=== PATIENT | female | born 1935 | race Hispanic/Latino ===

== ENCOUNTER 2018-02-18 03:40 | Inpatient (IN) | payer MEDICARE ==
[2018-02-18 04:48] LABS: Thyroid Stimulating Hormone 3.332 uIU/mL (0.35-4.94)
[2018-02-18 05:11] LABS: Bilirubin Negative (Negative); Blood, Urine Trace (Negative); Clarity CLEAR (Clear); Glucose, Urine (Dipstick) Negative (Negative); Leukocyte Negative (Negative); Nitrite Negative (Negative); Protein, Urine (Dipstick) Negative (Neg-Trace); Specific Gravity, Urine 1.004 (1.002-1.036); Urobilinogen 0.2 mg/dL (0.2-1.0)
[2018-02-18 05:14] LABS: Bacteria/HPF None Seen HPF (None Seen); Hyaline Casts/LPF 0-3 HYALINE CAST LPF (0-3 Hyaline); Pathc Cast-AUWi Flag 0.14 (0-2.49); RBC/HPF 0-3 HPF (0-3); Squamous Epithelial None Seen HPF (0-3); WBC/HPF None Seen HPF (0-3)
[2018-02-18] MEDS ORDERED: Ondansetron PF 4 MG/2 ML Vial IVP PRN ×2 (05:18)
[2018-02-18] MEDS ORDERED: Nitroglycerin 0.4 MG TAB (25 Tab Bottle) SL PRN (05:18)
[2018-02-18] MEDS ORDERED: Calcium Carbonate 500 MG ChewTAB PO PRN (05:18)
[2018-02-18] MEDS ORDERED: cloNIDine 0.1 MG TAB PO PRN (05:18)
[2018-02-18] MEDS ORDERED: hydrALAZINE 20 MG/ML VIAL SLOW IVP PRN (05:18)
[2018-02-18] MEDS ORDERED: Senokot S 8.6-50 MG TAB PO PRN (05:18)
[2018-02-18] MEDS ORDERED: Bisacodyl 5 MG TAB PO PRN (05:18)
[2018-02-18] MEDS ORDERED: Acetaminophen 325 MG TAB PO PRN (05:18)
[2018-02-18] MEDS ORDERED: Sodium Chloride 0.9% 1,000 ML IV SCH (05:30)
--- NOTE | 2018-02-18 05:43 | PDOC.EVN ---
Event Note - Event Note Event Note: H&P dictated #[id number].
--- NOTE | 2018-02-18 06:07 | HP ---
DATE OF ADMISSION: 02/18/2018 CHIEF COMPLAINT: Generalized weakness, nausea, and vomiting. PRIMARY CARE PHYSICIAN: Dr. Prado. HISTORY OF PRESENT ILLNESS: Ms. Cordova is a pleasant 82-year-old very active otherwise healthy fem aleks with past medical history of hypertension who presented to the ER with the above-mentioned compla int. The patient initially has presented to outside ER for generalized weakness. History is mainly obtained by the patient and her daughter present at the bedside. Electronical medical records have b een reviewed. According to Ms. Cordova's daughter, the patient has been having lots of depression recently. She r eports that one year ago, her father and then patient's brother in 2 weeks ago. Patient do g was ran over. The patient has been having trouble sleeping and was prescribed Xanax by the patient 's daughter's primary care physician, which she has been taking. She apparently ran out of the Xanax and since then has been having a hard time falling asleep. She has been eating poorly as well. Als o, because she was told that she has high blood pressure needs to watch her diet: She has lowered he r oral intake. On top of that, she ate some outside Italian food and started to throw up. She has h ad 1 or 2 episodes of vomiting in the last 1 or 2 days. Denies any abdominal pain or diarrhea. Scar es any sick contacts. No fever, chills, runny nose, sore throat, chest pain, shortness of breath, dy suria, frequency, urgency. No blood in the stools or black tarry looking stools. In the emergency room, the most shocking finding was hyponatremia with serum sodium of 116 without an y other abnormality. She was transferred over to our facility. In the emergency room, a chest x-ray was done which was unremarkable. The patient was otherwise hemodynamically stable and is now being admitted for severe hyponatremia. She has been given some IV fluids in the outside emergency room. Patient notably has normal renal function. She has also received 325 mg of aspirin and 0.5 mg of grant azepam, 4 mg of Zofran, 1000 mL of normal saline, and 20 mEq of K-Dur in the outside emergency room. PAST MEDICAL HISTORY: 1. Hypertension. 2. Anxiety and depression. 3. Dyslipidemia. 4. Hypothyroidism. PAST SURGICAL HISTORY: None reviewed with the patient and her daughter. PSYCHIATRIC HISTORY: Anxiety and depression. ALLERGIES: No known medication allergies. HOME MEDICATIONS: 1. Lisinopril. 2. Atorvastatin. 3. Levothyroxine. Medication dosages need to be further confirmed. CODE STATUS: DO NOT RESUSCITATE OR INTUBATE. Discussed with the patient in detail. 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 She is very independent. Her dog 2 weeks ago and her 's anniversary approaching in few days. ALLERGIES: No known medication allergies. CURRENT MEDICATIONS: Atorvastatin 40 mg daily, levothyroxine 75 mcg daily, lisinopril 20 mg daily. FAMILY HISTORY: Significant for stroke in patient's father, otherwise one of her sisters has diabete s. No history of premature coronary artery disease or cancer. REVIEW OF SYSTEMS: A 12-point review of systems was done and is negative except for those mentioned in the history and physical. The daughter does report some confusion earlier today. PHYSICAL EXAMINATION: VITAL SIGNS: Upon presentation to the emergency room, blood pressure 178/87, pulse of 88, respiratio ns 16, temperature 98.1, saturating 97% on room air. GENERAL: No acute distress, awake, alert, oriented x3, appears younger than her stated age. HEENT: Mucous membranes are slightly dry. No oropharyngeal exudate or erythema. Head is normocepha lic, atraumatic. Pupils equal, reactive to light and accommodation. Extraocular movement intact. NECK: Supple without any lymphadenopathy, JVD, or bruit. CHEST: Clear to auscultation without any wheezing, rales, or rhonchi. HEART: Rate and rhythm is regular without any murmur, rubs, or gallops. ABDOMEN: Soft, nontender, nondistended with positive bowel sounds. EXTREMITIES: Free of any cyanosis, clubbing, or edema. NEUROLOGIC: Nonfocal. SKIN: Free of any rashes or bruises, feel warm and dry to touch. PSYCHIATRIC: Normal affect. LABORATORY DATA: Serum sodium is 116, BUN and creatinine 27 and 0.82, blood sugar 138, potassium 3.6 , chloride 77. Liver enzymes unremarkable. BNP normal at 35. Cardiac enzymes normal. Urinalysis s hows specific gravity 1.004, trace blood. CBC unremarkable. Chest x-ray by my review has no evidenc e to suggest any pulmonary edema or infiltrate. Twelve-lead EKG by my review shows normal sinus rhyt hm at 84 beats per minute without any ectopy. Nonspecific ST and T-wave changes are seen. IMPRESSION AND PLAN: 1. Hyponatremia. We will recheck the sodium again. It appears to hypotonic at this time with likel y due to poor oral intake as well as vomiting. The patient has received 1 liter of normal saline. W e will put her on free water restriction and started on gentle IV fluid hydration and monitor sodium levels every few hours. Urine osmolality and urine sodium as well as serum osmolality will be checke d. We will consult Nephrology for falling the patient as well. We will monitor the rise of se rum sodium of not more than 10 mEq in 24 hours. She will be monitored on the telemetry unit. I doub t that this is SIADH in the absence of any specific cause or any other illnesses at this time. Sligh tly elevated BUN and also low chloride level suggest hypovolemia and hypotonic state. The patient is not on any thiazide diuretics. 2. Hypertension. We will restart her lisinopril once the dose is confirmed. We will also put her o n p.r.n. antihypertensives. 3. Dyslipidemia. Restart atorvastatin. 4. Hypothyroidism. TSH has been checked and is within normal limit. We will resume her levothyroxi ne at 175 mcg daily. 5. Add deep venous thrombosis and gastrointestinal prophylaxis. 6. Add p.r.n. medication orders. DISPOSITION: Ms. Cordova is currently being admitted to the hospital for severe hyponatremia. Fanny mated length of stay is at least 2-3 midnight. Further management will depend upon her clinical cour se.
[2018-02-18 06:42] LABS: Anion Gap 12 mmol/L (10-20); BUN (Urea Nitrogen) 22 mg/dL (9.8-20.1); Calc. Creatinine Clearance 0 mL/min (70-130); Calcium 8.5 mg/dL (7.8-10.44); Carbon Dioxide 25 mmol/L (23-31); Chloride 85 mmol/L (98-107); Estimated GFR-MDRD 76; Glucose 120 mg/dL (83-110); Potassium 3.7 mmol/L (3.5-5.1)
[2018-02-18 06:51] LABS: Sodium 118 mmol/L (136-145)
[2018-02-18 06:58] VITALS: BMI 21.2
[2018-02-18] MEDS: Sodium Chloride 0.9% 1,000 ML IV SCH (08:35)
[2018-02-18] MEDS: Enoxaparin Sodium 40 MG/0.4 ML SYRINGE SC SCH (08:39)
[2018-02-18] MEDS: Lisinopril 10 MG TAB PO SCH (08:40)
--- NOTE | 2018-02-18 09:05 | RAD ---
PORTABLE CHEST: History: Shortness of breath. FINDINGS: Heart size is within normal limits. There are arthrosclerotic changes of the aorta. The lungs are lisa ar of infiltrates. The bones appear demineralized. IMPRESSION: No active intrathoracic disease. POS: [facility]
[2018-02-18 10:09] LABS: Anion Gap 12 mmol/L (10-20); BUN (Urea Nitrogen) 21 mg/dL (9.8-20.1); Calc. Creatinine Clearance 43 mL/min (70-130); Calcium 8.8 mg/dL (7.8-10.44); Carbon Dioxide 25 mmol/L (23-31); Chloride 87 mmol/L (98-107); Estimated GFR-MDRD 73; Glucose 149 mg/dL (83-110); Potassium 3.6 mmol/L (3.5-5.1); Sodium 120 mmol/L (136-145)
[2018-02-18] MEDS: Famotidine 20 MG TAB PO SCH (10:17)
[2018-02-18 14:30] LABS: Anion Gap 11 mmol/L (10-20); BUN (Urea Nitrogen) 22 mg/dL (9.8-20.1); Calc. Creatinine Clearance 40 mL/min (70-130); Calcium 8.6 mg/dL (7.8-10.44); Carbon Dioxide 24 mmol/L (23-31); Chloride 88 mmol/L (98-107); Estimated GFR-MDRD 68; Glucose 158 mg/dL (83-110); Potassium 3.9 mmol/L (3.5-5.1)
[2018-02-18 14:33] LABS: Sodium 119 mmol/L (136-145)
--- NOTE | 2018-02-18 16:17 | PDOC.PN ---
- Subjective Encounter Start Date: 02/18/18 Encounter Start Time: 15:45 Subjective: f/u for hyponatremia, N/V and insomnia. Overall feeling better today -: and appetite improved. N/V resolved. - Objective Resuscitation Status: Resuscitation Status DNR:Do Not Resuscitate MAR Reviewed: Yes Vital Signs & Weight: Vital Signs (12 hours) Temp Pulse Resp BP BP Pulse Ox 02/18/18 15:49 98.2 F 68 16 107/55 L 97 02/18/18 12:18 97.6 F 70 16 111/55 L 96 02/18/18 08:40 130/62 02/18/18 08:25 97.9 F 70 16 130/62 95 02/18/18 06:40 97.8 F 69 16 135/60 95 Weight Weight 105 lb 4.8 oz Result Diagrams: 02/18/18 13:30 Additional Labs: Laboratory Tests 02/18/18 02/18/18 02/18/18 04:00 04:00 04:00 Sodium 118 L* Serum Osmolality 253 L B-Natriuretic Peptide 35.2 TSH 3rd Generation 3.3320 Urine Osmolality Urine Sodium 02/18/18 02/18/18 02/18/18 04:50 04:50 09:40 Sodium 120 L Serum Osmolality B-Natriuretic Peptide TSH 3rd Generation Urine Osmolality 210 L Urine Sodium 45 Radiology Reviewed by me: Yes (PCXR - negative) EKG Reviewed by me: Yes (Tele - SR) Phys Exam - Physical Examination Constitutional: NAD HEENT: PERRLA, sclera anicteric, oral pharynx no lesions Neck: no nodes, no JVD, supple, full ROM Respiratory: no wheezing, no rales, no rhonchi, clear to auscultation bilateral Cardiovascular: RRR, no significant murmur, no rub, gallop Gastrointestinal: soft, non-tender, no distention, positive bowel sounds Musculoskeletal: no edema, pulses present Neurological: normal sensation, moves all 4 limbs Psychiatric: normal affect, A&O x 3 Skin: no rash, normal turgor, cap refill <2 seconds Dx/Plan (1) Hyponatremia Code(s): E87.1 - HYPO-OSMOLALITY AND HYPONATREMIA Status: Acute Comment: Multifactorial given dehydration, N/V and poor oral intake and HCTZ use, avoid HCTZ, continue low-volume NS, serial Na+ (2) Nausea & vomiting Code(s): R11.2 - NAUSEA WITH VOMITING, UNSPECIFIED Status: Acute Comment: Improved, continue Zofran prn, advance diet as tolerated (3) HTN (hypertension) Code(s): I10 - ESSENTIAL (PRIMARY) HYPERTENSION Status: Chronic Qualifiers: Hypertension type: essential hypertension Qualified Code(s): I10 - Essential (primary) hypertension Comment: Resume home BP regimen but d/c HCTZ, serial monitoring (4) Hypothyroid Code(s): E03.9 - HYPOTHYROIDISM, UNSPECIFIED Status: Chronic Comment: Resume home regimen of Levothyroxine (5) Depression Code(s): F32.9 - MAJOR DEPRESSIVE DISORDER, SINGLE EPISODE, UNSPECIFIED Status : Chronic Comment: Multifactorial given loss of multiple family members recently, will need [facility] follow up but not a good candidate for SSRI currently given hyponatremia - Plan plan discussed w/ family, PT/OT, out of bed/ambulate, DVT proph w/SCDs Stable currently -: Continue low-volume IV NS -: Avoid HCTZ -: Trial Restoril 15mg HS for insomnia -: Regular diet * AM lab: BMP
[2018-02-18 20:33] LABS: Potassium 3.8 mmol/L (3.5-5.1)
--- NOTE | 2018-02-18 22:27 | CON ---
DATE OF CONSULTATION: 02/18/2018 CONSULTING PHYSICIAN: Dr. Plascencia. REASON FOR CONSULTATION: Hyponatremia. REASON FOR ADMISSION: Nausea, vomiting, weakness. HISTORY OF PRESENT ILLNESS: This 82-year-old female with history of hypertension, anxiety, depression, hypothyroidism, came to the hospital with the above complaints and was found to have sodi um of 116, which got corrected to 118-120 with IV fluids and Nephrology is consulted. The patient abdul s been having nausea, vomiting, and weakness as per the daughter, and she has been hydrating herself. No chest pain or palpitation reported. No fever, chills. PAST MEDICAL HISTORY: Positive for hypertension, anxiety, depression, hyperlipidemia, hypothyroidism . PAST SURGICAL HISTORY: None. HOME MEDICATIONS: Lisinopril, , levothyroxine. ALLERGIES: No known drug allergies. SOCIAL HISTORY: No smoking, alcohol, drugs. FAMILY HISTORY: No history of kidney disease. REVIEW OF SYSTEMS: The following complete review of systems was negative, unless otherwise mentioned in the HPI or below: Constitutional: Weight loss or gain, ability to conduct usual activities. Sk in: Rash, itching. Eyes: Double vision, pain. ENT/Mouth: Nose bleeding, neck stiffness, pain, te nderness. Cardiovascular: Palpitations, dyspnea on exertion, orthopnea. Respiratory: Shortness of breath, wheezing, cough, hemoptysis, fever or night sweats. Gastrointestinal: Poor appetite, abdom inal pain, heartburn, nausea, vomiting, constipation, or diarrhea. Genitourinary: Urgency, frequenc y, dysuria, nocturia. Musculoskeletal: Pain, swelling. Neurologic/Psychiatric: Anxiety, depressio n. Allergy/Immunologic: Skin rash, bleeding tendency. PHYSICAL EXAMINATION: GENERAL: This is a thin-built female, in no apparent distress. VITAL SIGNS: Temperature 97.6, pulse 70, respiratory rate 16, blood pressure 111/55. HEENT: Atraumatic, normocephalic. Oral mucosa is dry. NECK: Supple. CARDIOVASCULAR: S1, S2 heard. Rate and rhythm regular. RESPIRATORY: Clear. GASTROINTESTINAL: Abdomen is soft. MUSCULOSKELETAL: 1+ edema. DERMATOLOGIC: No rash. NEUROLOGIC: Alert and awake normal. PSYCHIATRIC: Mood and affect normal. LABORATORY DATA: Sodium is 118, potassium 3.7, BUN 22, creatinine 0.7. . Urine osmolality is 210. ASSESSMENT AND PLAN: 1. Hyponatremia, most likely from reduced solute intake or hypovolemia. Agree with intravenous flui ds for now with cautious administration and cautious monitoring. 2. Avoid correction more than 8-10 mEq in 24 hours. 3. Hypochloremia. 4. Edema, controlled. 5. Hypertension, stable. 6. Hypo-osmolality. 7. We will monitor sodium closely and continue IV fluids as tolerated. We will reduce IV fluids to 50 mL per hour. Thank you for the consult.
[2018-02-18] MEDS: Temazepam 15 MG CAP PO PRN (22:28)
[2018-02-19] MEDS: Sodium Chloride 0.9% 1,000 ML IV SCH (04:32)
[2018-02-19 05:29] LABS: #Basophils 0.1 thou/uL (0.0-0.2); #Eosinphils 0.3 thou/uL (0.0-0.7); #Monocytes 0.6 thou/uL (0.11-0.59); #Neutrophils 3.3 thou/uL (1.40-6.50); %Basophils 1.7 % (0.0-1.0); %Eosinophils 5.1 % (0.0-10.0); %Lymphocytes 31.4 % (21.0-51.0); %Monocytes 9.6 % (0.0-10.0); %Neutrophils 52.2 % (42.0-75.0); Anion Gap 8 mmol/L (10-20); BUN (Urea Nitrogen) 25 mg/dL (9.8-20.1); Calc. Creatinine Clearance 43 mL/min (70-130); Calcium 8.6 mg/dL (7.8-10.44); Carbon Dioxide 27 mmol/L (23-31); Chloride 94 mmol/L (98-107); Estimated GFR-MDRD 73; Glucose 91 mg/dL (83-110); Hemoglobin 12.4 g/dL (12.0-16.0); Mean Corpuscular HGB CONC 33.3 g/dL (32.0-36.0); Mean Corpuscular Hemoglobin 30.3 pg (27.0-31.0); Mean Corpuscular Volume 91.1 fL (78.0-98.0); Platelet Count 230 thou/uL (130-400); Potassium 3.9 mmol/L (3.5-5.1); RBC Distribution Width 11.5 % (11.5-14.5); Red Blood Cell (RBC) Count 4.09 mill/uL (4.20-5.40); Sodium 125 mmol/L (136-145); White Blood Cell (WBC) Count 6.3 thou/uL (4.8-10.8)
[2018-02-19] MEDS: Levothyroxine Sodium 75 MCG TAB PO SCH (06:29)
[2018-02-19] MEDS: Lisinopril 10 MG TAB PO SCH (09:21)
[2018-02-19] MEDS: Enoxaparin Sodium 40 MG/0.4 ML SYRINGE SC SCH (09:21)
[2018-02-19] MEDS: Famotidine 20 MG TAB PO SCH (09:22)
--- NOTE | 2018-02-19 16:35 | PDOC.PN ---
- Subjective Encounter Start Date: 02/19/18 Encounter Start Time: 16:25 Subjective: f/u for hyponatremia likely multifactorial including iatrogenic but improve -: with low-volume IV NS. Overall feeling better and slept 4 hours last pm - Objective Resuscitation Status: Resuscitation Status DNR:Do Not Resuscitate MAR Reviewed: Yes Vital Signs & Weight: Vital Signs (12 hours) Temp Pulse Resp BP BP Pulse Ox 02/19/18 15:15 98.5 F 73 16 114/58 L 95 02/19/18 11:23 98.1 F 72 16 130/62 96 02/19/18 09:21 139/65 02/19/18 07:51 98.5 F 69 16 139/65 95 Weight Weight 110 lb I&O: 02/18/18 02/19/18 02/20/18 06:59 06:59 06:59 Intake Total 1618 Output Total 1900 Balance -282 Result Diagrams: 02/19/18 04:37 02/19/18 04:37 Additional Labs: Laboratory Tests 02/18/18 02/18/18 02/18/18 04:00 04:00 04:00 Sodium 118 L* Serum Osmolality 253 L B-Natriuretic Peptide 35.2 TSH 3rd Generation 3.3320 Urine Osmolality Urine Sodium 02/18/18 02/18/18 02/18/18 04:50 04:50 09:40 Sodium 120 L Serum Osmolality B-Natriuretic Peptide TSH 3rd Generation Urine Osmolality 210 L Urine Sodium 45 02/18/18 02/18/18 13:30 20:07 Sodium 119 L* 123 L Serum Osmolality B-Natriuretic Peptide TSH 3rd Generation Urine Osmolality Urine Sodium EKG Reviewed by me: Yes (Tele - SR) Phys Exam - Physical Examination Constitutional: NAD HEENT: PERRLA, sclera anicteric, oral pharynx no lesions Neck: no nodes, no JVD, supple, full ROM Respiratory: no wheezing, no rales, no rhonchi, clear to auscultation bilateral S1, S2 Cardiovascular: RRR, no significant murmur, no rub, gallop Gastrointestinal: soft, non-tender, no distention, positive bowel sounds Musculoskeletal: no edema, pulses present Neurological: normal sensation, moves all 4 limbs Psychiatric: normal affect, A&O x 3 Skin: no rash, normal turgor, cap refill <2 seconds Dx/Plan (1) Hyponatremia Code(s): E87.1 - HYPO-OSMOLALITY AND HYPONATREMIA Status: Acute Comment: Multifactorial given dehydration, N/V and poor oral intake and HCTZ use, avoid HCTZ, continue low-volume NS, serial Na+ (2) Nausea & vomiting Code(s): R11.2 - NAUSEA WITH VOMITING, UNSPECIFIED Status: Acute Comment: Improved, continue Zofran prn, advance diet as tolerated (3) HTN (hypertension) Code(s): I10 - ESSENTIAL (PRIMARY) HYPERTENSION Status: Chronic Qualifiers: Hypertension type: essential hypertension Qualified Code(s): I10 - Essential (primary) hypertension Comment: Resume home BP regimen but d/c HCTZ, serial monitoring (4) Hypothyroid Code(s): E03.9 - HYPOTHYROIDISM, UNSPECIFIED Status: Chronic Comment: Resume home regimen of Levothyroxine (5) Depression Code(s): F32.9 - MAJOR DEPRESSIVE DISORDER, SINGLE EPISODE, UNSPECIFIED Status : Chronic Comment: Multifactorial given loss of multiple family members recently, will need [facility] follow up but not a good candidate for SSRI currently given hyponatremia - Plan plan discussed w/ family, social work case manager, out of bed/ambulate, DVT proph w/SCDs Stable overall -: Continue low-volume IV NS -: OOB/ambulate -: D/C HCTZ -: AM lab: BMP * Likely home in 24h
--- NOTE | 2018-02-19 19:18 | PRG ---
DATE OF SERVICE: 02/19/2018 SUBJECTIVE: Patient was seen and examined at bedside and overnight events noted. Patient denies any shortness of breath or chest pain or palpitation. No history of nausea or vomiting or diarrhea or f ever or chills or cramps. OBJECTIVE: GENERAL: This is a well-built female in no apparent distress. VITAL SIGNS: Temperature 98.1, pulse 72, respiratory rate 16, blood pressure 130/62. HEENT: Atraumatic, normocephalic. Oral mucosa is moist. NECK: Supple CARDIOVASCULAR: S1, S2 heard. Rate and rhythm regular. RESPIRATORY: Clear to auscultation. GASTROINTESTINAL: Abdomen is soft. MUSCULOSKELETAL: No tenderness, no edema. DERMATOLOGIC: No skin rash. NEUROLOGIC: Alert, awake, and oriented x3. No focal neurologic deficits. Moving all the extremitie s. PSYCHIATRIC: Mood and affect normal. LABORATORY DATA: Sodium is 125, BUN is 25, creatinine is 0.7. ASSESSMENT AND PLAN: 1. Hyponatremia, hypovolemic. Continue IV fluids, sodium with appropriate correction. 2. Hypochloremia. 3. Edema. 4. Hypertension. Monitor sodium.
[2018-02-19] MEDS: Temazepam 15 MG CAP PO PRN (20:23)
[2018-02-20] MEDS: Sodium Chloride 0.9% 1,000 ML IV SCH (01:32)
[2018-02-20] MEDS: Levothyroxine Sodium 75 MCG TAB PO SCH (05:41)
[2018-02-20 07:31] VITALS: BP 174/80; TEMP 97.9
[2018-02-20] MEDS: Lisinopril 10 MG TAB PO SCH (09:30)
[2018-02-20] MEDS: Enoxaparin Sodium 40 MG/0.4 ML SYRINGE SC SCH (09:30)
[2018-02-20] MEDS: Famotidine 20 MG TAB PO SCH (09:31)
[2018-02-20 10:47] LABS: Anion Gap 9 mmol/L (10-20); BUN (Urea Nitrogen) 15 mg/dL (9.8-20.1); Calc. Creatinine Clearance 45 mL/min (70-130); Calcium 8.8 mg/dL (7.8-10.44); Carbon Dioxide 28 mmol/L (23-31); Chloride 100 mmol/L (98-107); Estimated GFR-MDRD 76; Glucose 128 mg/dL (83-110); Potassium 3.7 mmol/L (3.5-5.1); Sodium 133 mmol/L (136-145)
--- NOTE | 2018-02-20 11:54 | DIS ---
DATE OF ADMISSION: 02/18/2018 DATE OF DISCHARGE: 02/20/2018 DISCHARGE DIAGNOSES: 1. Hyponatremia, multifactorial and iatrogenic, resolving. 2. Nausea and vomiting secondary to #1, resolved. 3. Hypertension, labile. 4. Hypothyroidism, stable. CONSULTATION: Dr. Tubbs with Nephrology Service. PERTINENT LABORATORY DATA AND X-RAY FINDINGS: Sodium ranged between 118-133, creatinine ranged betwe en 0.73-0.81, estimated GFR ranging between 68-76. BNP 35, TSH 3.33. CBC within normal limits. Por table chest x-ray dated 02/18/2018 showed no acute cardiopulmonary process. HOSPITAL COURSE: Patient was admitted to the telemetry unit after presenting with generalized weakne ss, nausea, vomiting, and hyponatremia. The patient was initially placed on low volume intravenous n ormal saline and monitored for clinical response. The patient with an apparent hypovolemic hyponatre ezequiel likely multifactorial including the ongoing use of hydrochlorothiazide in addition to poor oral i ntake. Serial sodium monitoring showed overall improved trend with current value of 133 at the time of discharge. The patient was discontinued on hydrochlorothiazide and resumed on lisinopril 10 mg da michael. Current recommendations are for close blood pressure monitoring with potential titration of her antihypertensive regimen on an ongoing basis after discharge. The patient remained clinically stabl e during the hospital course with telemetry monitoring showing sinus mechanism without acute arrhythm ia or dysrhythmia. The patient tolerating regular oral intake and voiding appropriately. Mental sta tus is baseline and stable and patient ready for discharge home on 02/20/2018. I have examined the p atient at the time of discharge and discussed followup instructions. The patient and daughter verbal ized understanding and agreement and ready for discharge on 02/20/2018. DISCHARGE MEDICATIONS: 1. Lisinopril 10 mg 1 tab p.o. daily. 2. Levothyroxine 75 mcg p.o. daily. 3. Lipitor 40 mg p.o. daily. 4. Temazepam 15 mg p.o. at bedtime p.r.n. insomnia. FOLLOWUP: The patient will follow up with her primary care provider, Dr. Witt within 7 days of discharge. CONDITION ON DISCHARGE: Stable. ACTIVITY: Ad kenia. DIET: Regular. CODE STATUS: DO NOT RESUSCITATE. DISPOSITION: Home, 02/20/2018.
--- NOTE | 2018-02-20 18:27 | PRG ---
DATE OF SERVICE: 02/20/2018 SUBJECTIVE: Patient was seen and examined at bedside and overnight events noted. Patient denies any shortness of breath or chest pain or palpitation. No history of nausea or vomitin g or diarrhea or fever or chills or cramps. OBJECTIVE: GENERAL: This is a thin-built female, in no apparent distress. VITAL SIGNS: Temperature 97.9, pulse 74, respiratory rate 16, blood pressure 174/80. HEENT: Atraumatic, normocephalic. Oral mucosa is moist. NECK: Supple. CARDIOVASCULAR: S1 and S2 heard. Rate and rhythm regular. RESPIRATORY: Clear to auscultation. GASTROINTESTINAL: Abdomen is soft. MUSCULOSKELETAL: No tenderness. No edema. DERMATOLOGIC: No skin rash. NEUROLOGIC: Alert and awake and oriented x3. No focal neurologic deficits. Moving all the extremit ies. PSYCHIATRIC: Mood and affect normal. LABORATORY DATA: Sodium is 133, potassium 3.7, creatinine 0.7. ASSESSMENT AND PLAN: 1. Hyponatremia, much better, most likely hypovolemic. 2. Edema, controlled. 3. Hypertension, stable. 4. Hypochloremia. Labs are better. Advised to follow up with the clinic in 1-2 weeks.
== END 2018-02-20 13:14 | disposition home or self-care (01) | DRG 641 ==
LOC: ERS 03:40 → 2NO 04:24
PROVIDERS: ADMIT Internal Medicine; ATTEND Internal Medicine
DX: E87.1 Hypo-osmolality and hyponatremia (principal); I10 Essential (primary) hypertension; F32.9 Major depressive disorder, single episode, unspecified; F41.9 Anxiety disorder, unspecified; E78.5 Hyperlipidemia, unspecified; E03.9 Hypothyroidism, unspecified; Z79.899 Other long term (current) drug therapy; E87.8 Other disorders of electrolyte and fluid balance, not elsewhere classified
CPT/HCPCS: 36415; 71045; 80048; 83880; 83930; 83935; 84300; 84443; 85025; J1650

== ENCOUNTER 2019-10-22 05:48 | Outpatient (CLI) | payer MEDICARE, OTHER ==
[2019-10-22 14:01] LABS: INR-International Normal Ratio 0.9; Prothrombin Time 12.4 sec (12.0-14.7)
[2019-10-22 14:15] LABS: #Basophils 0.1 thou/uL (0.0-0.2); #Eosinphils 0.3 thou/uL (0.0-0.7); #Lymphocytes 1.8 thou/uL (1.20-3.40); #Monocytes 0.6 thou/uL (0.11-0.59); #Neutrophils 3.9 thou/uL (1.40-6.50); %Lymphocytes 26.7 % (21.0-51.0); %Monocytes 8.5 % (0.0-10.0); %Neutrophils 58.9 % (42.0-75.0); Hemoglobin 13.4 g/dL (12.0-16.0); Mean Corpuscular HGB CONC 32.2 g/dL (32.0-36.0); Mean Platelet Volume 8.6 fL (7.4-10.4); Platelet Count 255 thou/uL (130-400); RBC Distribution Width 11.2 % (11.5-14.5); Red Blood Cell (RBC) Count 4.48 mill/uL (4.20-5.40); White Blood Cell (WBC) Count 6.6 thou/uL (4.8-10.8)
[2019-10-22 14:28] LABS: Anion Gap 13 mmol/L (10-20); BUN (Urea Nitrogen) 32 mg/dL (9.8-20.1); Calc. Creatinine Clearance 0 mL/min (70-130); Calcium 9.5 mg/dL (7.8-10.44); Carbon Dioxide 28 mmol/L (23-31); Chloride 101 mmol/L (98-107); Estimated GFR-MDRD 54; Glucose 108 mg/dL (83-110); Potassium 5.3 mmol/L (3.5-5.1); Sodium 137 mmol/L (136-145)
[2019-10-22 14:32] LABS: Bacteria/HPF None Seen HPF (None Seen); Bilirubin Negative (Negative); Blood, Urine Negative (Negative); Clarity Clear (Clear); Glucose, Urine (Dipstick) Normal (Negative); Ketone, Urine Negative (Negative); Leukocyte 25 Leu/uL (Negative); Nitrite Negative (Negative); Protein, Urine (Dipstick) Negative (Neg-Trace); RBC/HPF 0-3 HPF (0-3); Specific Gravity, Urine 1.018 (1.002-1.036); Squamous Epithelial 0-3 HPF (0-3); Urobilinogen Normal mg/dL (Less than 2); WBC/HPF 0-3 HPF (0-3)
[2019-10-23 16:00] LABS: SARS-CoV-2 MS2 Positive; SARS-CoV-2 N Gene Negative; SARS-CoV-2 S Gene Negative; SARS-CoV-2 orf1ab Negative
--- NOTE | 2019-10-26 10:10 | EKG ---
Test Reason : FOR 10/25 Blood Pressure : / mmHG Vent. Rate : 059 BPM Atrial Rate : 059 BPM P-R Int : 202 ms QRS Dur : 078 ms QT Int : 420 ms P-R-T Axes : 068 065 074 degrees QTc Int : 415 ms Sinus bradycardia Otherwise normal ECG No previous ECGs available Confirmed by DAVE AUSTIN (2) on 10/26/2019 10:10:41 AM Referred By: IERO Confirmed By:DAVE AUSTIN
== END 2019-10-22 05:49 | disposition home or self-care (01) ==
LOC: LABBT 05:48
PROVIDERS: ATTEND Orthopaedic Surgery
DX: Z01.818 Encounter for other preprocedural examination (principal); Z11.59 Encounter for screening for other viral diseases; M17.12 Unilateral primary osteoarthritis, left knee
CPT/HCPCS: 80048; 81001; 85025; 85610; 87081; 93005; U0003; 87635; 93010

== ENCOUNTER 2019-10-26 06:58 | Day surgery (SDC) | payer MEDICARE ==
[2019-10-26] MEDS ORDERED: Tranexamic Acid 1,000 MG/10 ML VIAL ONE ×2 (07:49→11:12)
[2019-10-26] MEDS ORDERED: Vancomycin 1 GM/200 ML BAG ONE (07:49)
[2019-10-26] MEDS ORDERED: Sodium Chloride 0.9% 100 ML ONE (07:49)
[2019-10-26] MEDS ORDERED: Midazolam HCl 2 mg/2 ml Vial ONE (08:08)
[2019-10-26] MEDS ORDERED: Fentanyl 100 MCG/2 ML VIAL ONE ×3 (08:08→10:17)
[2019-10-26] MEDS ORDERED: HYDROcodone/Acetaminophen 10/325 mg Tablet PO PRN ×2 (08:20)
[2019-10-26] MEDS ORDERED: Zolpidem Tartrate 5 MG TAB PO PRN ×2 (08:20→10:45)
[2019-10-26] MEDS ORDERED: Ropivacaine HCl/PF 250 ML in Premix Bag 1 BAG NERVE BLCK SCH (08:20)
[2019-10-26] MEDS ORDERED: Ondansetron PF 4 MG/2 ML Vial IVP PRN ×2 (08:20→10:45)
[2019-10-26] MEDS ORDERED: Promethazine HCl 25 MG/ML VIAL IM PRN ×3 (08:20→10:45)
[2019-10-26] MEDS ORDERED: traMADol HCl 50 MG TAB PO PRN ×2 (08:20)
[2019-10-26] MEDS ORDERED: Fentanyl 100 MCG/2 ML VIAL IV PRN (08:21)
[2019-10-26] MEDS ORDERED: Bupivacaine PF 0.5% 30 ML VIAL ONE (09:48)
[2019-10-26] MEDS ORDERED: PACU-Morphine 4MG/ML VIAL SLOW IVP PRN (10:41)
[2019-10-26] MEDS ORDERED: Promethazine HCl 25 MG/ML VIAL SLOW IVP PRN (10:41)
[2019-10-26] MEDS ORDERED: diphenhydrAMINE 25 MG CAP PO PRN (10:45)
[2019-10-26] MEDS ORDERED: Acetaminophen 325 MG TAB PO PRN (10:45)
[2019-10-26] MEDS ORDERED: Tranexamic Acid 1,000 MG in Sodium Chloride 0.9% 100 ML IVPB SCH (10:45)
[2019-10-26] MEDS ORDERED: Ropivacaine 0.2% HCl/PF (40 MG/20 ML VIAL) ONE (11:41)
[2019-10-26] MEDS ORDERED: Ondansetron PF 4 MG/2 ML Vial ONE (11:41)
[2019-10-26] MEDS ORDERED: Ketorolac Tromethamine 30 MG/ML VIAL ONE (11:41)
[2019-10-26] MEDS ORDERED: Lidocaine 1% PF 5 ML VIAL ONE (11:41)
[2019-10-26] MEDS ORDERED: PROPOFOL 200 MG/20 ML VIAL ONE (11:41)
[2019-10-26] MEDS ORDERED: Dexamethasone 20 MG/5 ML VIAL ONE (11:41)
[2019-10-26] MEDS ORDERED: Bupivacaine HCl 0.5%/Epinephrine 1:200,000/PF 30 ml Vial ONE (11:41)
[2019-10-26 12:23] VITALS: BMI 21.4
[2019-10-26] MEDS ORDERED: Vancomycin 1 GM in Premix Bag 1 BAG IVPB SCH (13:00)
[2019-10-26] MEDS: Ketorolac Tromethamine 30 MG/ML VIAL IVP SCH ×2 (13:22→17:58)
[2019-10-26] MEDS: Sodium Chloride 0.9% 1,000 ML IV SCH ×2 (13:30→20:33)
--- NOTE | 2019-10-26 14:23 | OP ---
DATE OF PROCEDURE: 10/26/2019 PREOPERATIVE DIAGNOSIS: Left knee osteoarthrosis. POSTOPERATIVE DIAGNOSIS: Left knee osteoarthrosis. PROCEDURES PERFORMED: Left total knee replacement using [employer] pinless navigation. STRIP MACHINE OPERATOR: Mega Campos PA-C ESTIMATED BLOOD LOSS: Minimal. COMPLICATIONS: None. ANESTHESIA: She had general anesthetic. She had a preoperative block. IMPLANTS: To the left knee include [employer] total knee system, the femur was size 2 cruciate-retaining femur, tibial baseplate was size 2 primary tibial baseplate. We used a 2 x 11 mm CS X3 tibial bearing and a symmetric 27 x 8 X3 patella. DISPOSITION: She did go to recovery room in stable condition. INDICATIONS: This is an 83-year-old female, who has had knee arthritis for many years. At this point in time, she is having too much pain with daily activity and has failed all nonoperative treatment. At this time, she wished to have her knee replaced. PROCEDURE IN DETAIL: After all appropriate consent forms were explained and signed, the patient was taken back to the operating room and at this time was given general anesthetic. Once the level of anesthesia was appropriate, a well-padded tourniquet was placed on the left leg, and the leg was then prepped and draped in standard surgical fashion. The limb was exsanguinated and tourniquet taken up to 300 mmHg. Midline incision was made with a 10 blade down through the skin and subcutaneous tissue. Bovie electrocautery was used to coagulate any brisk venous bleeding. A new blade was used to make a medial parapatellar arthrotomy. Small subperiosteal release was performed medially and excess fat pad was removed. The knee was flexed up to gain access to the femur. The femur was navigated and distal femoral resection was made. Epicondylar access was used to align our sizing jig and this was pinned in place. We sized our femur to be a size 2 cruciate-retaining femur. 4:1 cutting block was applied and pinned. Anterior and posterior chamfer cuts were then made. We navigated out our proximal tibia and made our proximal tibial resection. Spreaders were used to remove any posterior osteophytes off the back of the femur as well as remaining meniscal tissue. A long alignment usama was then used to achieve correct rotation of our tibial baseplate and a size 2 primary tibial baseplate was chosen. This was pinned in place. We trialed the polyethylene and we used a 2 x 11 mm CS X3 tibial bearing polyethylene gave us full extension and good stability throughout range of motion. Two towel clips and a saw were used to cut our patella. Three lug nuts were drilled and a symmetric 27 x 8 X3 patella was trialed which sat nicely in the trochlear groove. We then drilled our femur and punched our tibia. All components were removed. The knee was thoroughly irrigated and dried. Cement was mixed into the cement gun on the back table. Components were then placed. The knee was held out in full extension until the cement had dried. All excess bone cement was removed. Multiple #2 Vicryl stitches as well as a Quill were used to close our extensor mechanism. 0 Quill followed by a running Monoderm was then used to close the skin. Surgicel glue was then used on the skin. Once this had dried, soft tissue dressing was applied to the limb, tourniquet was let down, and the toes pinked up nicely. The patient was then awakened and taken to the recovery room in stable condition. All counts were correct at the end of the case. The patient did receive preoperative IV antibiotics. The patient was injected with Marcaine for postoperative pain relief. Job ID: [id number]
[2019-10-26] MEDS: CEFAZOLIN 2 GM in Premix Bag 1 BAG IVPB SCH (17:59)
[2019-10-26] MEDS: Carvedilol 6.25 MG TAB PO SCH (20:32)
[2019-10-26] MEDS: Ferrous Gluconate 324 MG TAB PO SCH (20:32)
[2019-10-26] MEDS: Aspirin 81 mg Enteric Coated Tablet PO SCH (20:32)
[2019-10-27] MEDS: Ketorolac Tromethamine 30 MG/ML VIAL IVP SCH ×5 (00:12→23:40)
[2019-10-27] MEDS: CEFAZOLIN 2 GM in Premix Bag 1 BAG IVPB SCH (00:12)
[2019-10-27 05:10] LABS: Hemoglobin 11.3 g/dL (12.0-16.0); Mean Corpuscular HGB CONC 34.4 g/dL (32.0-36.0); Mean Corpuscular Hemoglobin 31.5 pg (27.0-31.0); Mean Corpuscular Volume 91.6 fL (78.0-98.0); Mean Platelet Volume 8.3 fL (7.4-10.4); Platelet Count 218 thou/uL (130-400); RBC Distribution Width 10.9 % (11.5-14.5); Red Blood Cell (RBC) Count 3.59 mill/uL (4.20-5.40); White Blood Cell (WBC) Count 14.7 thou/uL (4.8-10.8)
[2019-10-27] MEDS: Levothyroxine Sodium 75 MCG TAB PO SCH (05:18)
[2019-10-27] MEDS: Sodium Chloride 0.9% 1,000 ML IV SCH ×2 (06:00→17:34)
--- NOTE | 2019-10-27 09:10 | PRG ---
DATE OF SERVICE: SUBJECTIVE: Zeina is an 83-year-old female, postop day 1 from a left total knee arthroplasty. She is doing very well. She has no complaints at this point and her knee feels better than her preoperative state. She has already been up and ambulated greater than 30 feet. OBJECTIVE: VITAL SIGNS: Temperature 97.7, pulse 56, respiratory rate 18 and nonlabored, blood pressure is 148/66. GENERAL: She is alert and oriented to person, place, time, and situation. Responsive and appropriate with examiner, conversive and pleasant. SKIN: There is no strikethrough at the incision. She is neurovascularly intact in both lower extremities. LABORATORY DATA: Hemoglobin and hematocrit 11.3 and 32.9. IMPRESSION: An 83-year-old female, postop day 1 left total knee arthroplasty, doing well. PLAN: Continue current care. Probable discharge home tomorrow. Job ID: [id number]
[2019-10-27] MEDS: Aspirin 81 mg Enteric Coated Tablet PO SCH ×2 (09:11→21:06)
[2019-10-27] MEDS: Lisinopril 20 MG TAB PO SCH (09:11)
[2019-10-27] MEDS: Senokot S 8.6-50 MG TAB PO SCH ×2 (09:11→21:05)
[2019-10-27] MEDS: Carvedilol 6.25 MG TAB PO SCH ×2 (09:11→21:06)
[2019-10-27] MEDS: Ferrous Gluconate 324 MG TAB PO SCH ×2 (09:12→21:06)
[2019-10-27] MEDS: Multivitamin W/ Minerals 1 TAB PO SCH (09:12)
[2019-10-27] MEDS: Amlodipine 5 MG TAB PO SCH (09:12)
[2019-10-28] MEDS: Sodium Chloride 0.9% 1,000 ML IV SCH ×2 (03:42→12:45)
[2019-10-28] MEDS: Ketorolac Tromethamine 30 MG/ML VIAL IVP SCH (05:47)
[2019-10-28] MEDS: Levothyroxine Sodium 75 MCG TAB PO SCH (05:47)
[2019-10-28 05:57] LABS: Hemoglobin 10.1 g/dL (12.0-16.0); Mean Corpuscular HGB CONC 33.3 g/dL (32.0-36.0); Mean Corpuscular Volume 93.1 fL (78.0-98.0); Mean Platelet Volume 8.4 fL (7.4-10.4); Platelet Count 192 thou/uL (130-400); RBC Distribution Width 11.3 % (11.5-14.5); Red Blood Cell (RBC) Count 3.28 mill/uL (4.20-5.40); White Blood Cell (WBC) Count 10.4 thou/uL (4.8-10.8)
[2019-10-28] MEDS: Carvedilol 6.25 MG TAB PO SCH (08:30)
[2019-10-28] MEDS: Amlodipine 5 MG TAB PO SCH (08:30)
[2019-10-28] MEDS: Senokot S 8.6-50 MG TAB PO SCH (08:30)
[2019-10-28] MEDS: Aspirin 81 mg Enteric Coated Tablet PO SCH (08:30)
[2019-10-28] MEDS: Multivitamin W/ Minerals 1 TAB PO SCH (08:31)
[2019-10-28] MEDS: Ferrous Gluconate 324 MG TAB PO SCH (08:31)
[2019-10-28] MEDS: Lisinopril 20 MG TAB PO SCH (08:31)
[2019-10-28 12:00] VITALS: BP 126/69; TEMP 98.4
== END 2019-10-28 14:20 | disposition home or self-care (01) ==
LOC: SDC 06:58 → SURG A 11:59 → SDC 10-28 14:20
PROVIDERS: ATTEND Orthopaedic Surgery
PROC: 0SRD0J9 Replacement of Left Knee Joint with Synthetic Substitute, Cemented, Open Approach (ICD-10-PCS; principal; 2019-10-26)
PROC: 8E0YXBZ Computer Assisted Procedure of Lower Extremity (ICD-10-PCS; 2019-10-26)
PROC: 3E0T3BZ Introduction of Anesthetic Agent into Peripheral Nerves and Plexi, Percutaneous Approach (ICD-10-PCS; 2019-10-26)
PROC: 3E0T3BZ Introduction of Anesthetic Agent into Peripheral Nerves and Plexi, Percutaneous Approach (ICD-10-PCS; 2019-10-26)
DX: M17.12 Unilateral primary osteoarthritis, left knee (principal); G89.18 Other acute postprocedural pain; I10 Essential (primary) hypertension; E03.9 Hypothyroidism, unspecified; Z79.899 Other long term (current) drug therapy
CPT/HCPCS: 20985; 27447; 64445; 64448; 85027; 97110 ×3; 97116 ×3; 97139 ×3; 97530 ×2; C1713; C1776; 36415; J0670; J0690; J1100; J1885; J2250; J2405; J2704; J2795; J3010; J3370; J3490; S0020

== ENCOUNTER 2020-02-02 14:23 | Outpatient (CLI) | payer MEDICARE ==
--- NOTE | 2020-02-02 14:56 | BD ---
EXAM: Bone densitometry using DEXA HISTORY: 84 yo female. Screening for postmenopausal osteoporosis FINDINGS: L1--bone mineral density 0.716 g/sq cm; T score -2.5 ; Z score 0.0 L2--bone mineral density 0.596 g/sq cm; T score -2.9 ; Z score -1.1 L3--bone mineral density 0.735 g/sq cm; T score -2.2 ; Z score -0.2 L4--bone mineral density 1.020 g/sq cm; T score -0.4 ; Z score 2.7 Total L1-L4--bone mineral density 0.779 g/sq cm; T score -2.4 ; Z score 0.4 Left femoral neck--bone mineral density0.524; T score -2.9 ; Z score -0.4 IMPRESSION: Osteoporosis
== END 2020-02-02 14:24 | disposition home or self-care (01) ==
LOC: BICMAMMO 14:23
PROVIDERS: ATTEND Physician Assistant
DX: Z13.820 Encounter for screening for osteoporosis (principal); M81.0 Age-related osteoporosis without current pathological fracture
CPT/HCPCS: 77080